=== PATIENT | male | born 1970 | race Caucasian/White ===

== ENCOUNTER 2017-01-15 18:58 | Emergency (ER) | payer SELFPAY ==
[~2017-01-15] VITALS: Ht 182.8 cm; Wt 81.6 kg
[~2017-01-15 18:58] MED LIST: BACTRIM DS 8001 TA1 PO; HYDROCODONE BIT1 T11 PO; KEFLEX500 MG PO; NAPROSYN500 MG PO; NKHM; ZOFRAN4 MG PO
[2017-01-15] MEDS ORDERED: CLINDAMYCIN HC300 MG PO (19:30)
[2017-01-15] MEDS ORDERED: NAPROSYN500 MG PO (19:51)
[2017-01-15] MEDS ORDERED: TENORMIN25 M1 PO (19:54)
== END 2017-01-15 22:13 | disposition home or self-care (01) ==
LOC: ED 18:58
DX: K02.9 Dental caries, unspecified (principal); K04.01 Reversible pulpitis; I15.9 Secondary hypertension, unspecified

== ENCOUNTER 2018-08-01 00:48 | Emergency (ER) | payer SELFPAY ==
[~2018-08-01] VITALS: Ht 180.3 cm; Wt 90.7 kg
[~2018-08-01 00:48] MED LIST changes: +CLINDAMYCIN HC300 MG PO; +TENORMIN25 M1 PO
[2018-08-01] MEDS ORDERED: Motrin,Rufen800 MG PO (01:19)
[2018-08-01] MEDS ORDERED: CLINDAMYCIN HC300 MG PO (01:19)
== END 2018-08-01 02:05 | disposition home or self-care (01) ==
LOC: ED 00:48
DX: K04.01 Reversible pulpitis (principal); K02.9 Dental caries, unspecified; I10 Essential (primary) hypertension; Z79.2 Long term (current) use of antibiotics; Z79.899 Other long term (current) drug therapy

== ENCOUNTER 2019-11-23 05:19 | Emergency (ER) | payer OTHER ==
[~2019-11-23] VITALS: Ht 180.3 cm; Wt 90.7 kg
[~2019-11-23 05:19] MED LIST changes: +Motrin,Rufen800 MG PO
[2019-11-23 06:58] LABS: BASO % 0.4 % (0.0-1.0); EOS # 0.1 10*3/uL (0.0-0.4); EOS % 1.4 % (1.0-4.0); HEMATOCRIT 37.6 % (42.0-52.0); LYMPH # 1.3 10*3/uL (1.3-4.4); LYMPH % 18.3 % (27.0-41.0); MEAN CELL VOLUME 90.4 fl (80.0-94.0); MEAN CORPUSCULAR HGB 30.3 pg (27.0-31.0); MEAN CORPUSCULAR HGB CONC 33.5 g/dl (33.0-37.0); MEAN PLATELET VOLUME 11.2 fl (9.6-12.3); MONO # 0.5 10*3/uL (0.1-1.0); MONO % 6.3 % (3.0-9.0); NEUT # 5.4 10*3/uL (2.3-7.9); NEUT % 73.2 % (47.0-73.0); PLATELET COUNT AUTOMATED 172 10*3/uL (130-400); RED BLOOD COUNT 4.16 10*6/uL (4.50-5.90); RED CELL DISTRI WIDTH 12.7 % (0-14.5); WHITE BLOOD COUNT 7.3 10*3/uL (4.8-10.8)
[2019-11-23 07:07] LABS: INTERNATIONAL NORM RATIO 0.9 (2.0-3.5)
[2019-11-23 07:13] LABS: ALBUMIN 3.7 gm/dl (3.1-4.5); ALKALINE PHOSPHATASE 106 U/L (45-117); BUN 9 mg/dl (7-24); CHLORIDE 112 mmol/L (98-107); POTASSIUM 3.9 mmol/L (3.5-5.1); SGOT/AST 13 IU/L (3-35); SGPT/ALT 24 U/L (12-78); SODIUM 141 mmol/L (136-145); TOTAL PROTEIN 6.4 gm/dL (6.4-8.2)
[2019-11-23] MEDS ORDERED: Percocet 325 MG1 TAB PO (08:02)
== END 2019-11-23 08:10 | disposition home or self-care (01) ==
LOC: ED 05:19
PROVIDERS: Emergency Medicine
DX: S01.81XA Laceration without foreign body of other part of head, initial encounter (principal); M54.2 Cervicalgia; M54.9 Dorsalgia, unspecified; R79.1 Abnormal coagulation profile; W18.09XA Striking against other object with subsequent fall, initial encounter; Y93.89 Activity, other specified; Y92.89 Other specified places as the place of occurrence of the external cause; Y99.0 Civilian activity done for income or pay

== ENCOUNTER 2019-11-26 14:48 | Emergency (ER) | payer OTHER ==
[~2019-11-26] VITALS: Ht 180.3 cm; Wt 90.7 kg
[~2019-11-26 14:48] MED LIST changes: +Percocet 325 MG1 TAB PO
[2019-11-26] MEDS ORDERED: PERCOCET 5-3251 EACH PO (16:52)
== END 2019-11-26 17:03 | disposition home or self-care (01) ==
LOC: ED 14:48
DX: S29.012A Strain of muscle and tendon of back wall of thorax, initial encounter (principal); W22.8XXA Striking against or struck by other objects, initial encounter; Y93.89 Activity, other specified; Y92.89 Other specified places as the place of occurrence of the external cause; Y99.8 Other external cause status

== ENCOUNTER 2019-12-01 08:58 | Emergency (ER) | payer OTHER ==
[~2019-12-01] VITALS: Ht 180.3 cm; Wt 90.7 kg
[~2019-12-01 08:58] MED LIST changes: +PERCOCET 5-3251 EACH PO
== END 2019-12-01 09:41 | disposition home or self-care (01) ==
LOC: ED 08:58
DX: Z48.02 Encounter for removal of sutures (principal); Z79.899 Other long term (current) drug therapy; Z79.2 Long term (current) use of antibiotics

== ENCOUNTER 2023-01-12 12:49 | Emergency (ER) | payer SELFPAY ==
[2023-01-12] MEDS ORDERED: PREDNISONE50 MG PO (13:06)
[2023-01-12] MEDS ORDERED: CYCLOBENZAPRINE10 MG PO (13:13)
== END 2023-01-12 13:29 | disposition home or self-care (01) ==
LOC: ED 12:49
DX: M54.42 Lumbago with sciatica, left side (principal); M25.562 Pain in left knee; I10 Essential (primary) hypertension

== ENCOUNTER 2023-01-17 08:20 | Emergency (ER) | payer SELFPAY ==
[~2023-01-17] VITALS: Ht 177.8 cm; Wt 77.1 kg
[~2023-01-17 08:20] MED LIST changes: +CYCLOBENZAPRINE10 MG PO; +PREDNISONE50 MG PO
== END 2023-01-17 09:40 | disposition home or self-care (01) ==
LOC: ED 08:20
DX: S70.01XA Contusion of right hip, initial encounter (principal); I10 Essential (primary) hypertension; X58.XXXA Exposure to other specified factors, initial encounter; Y93.89 Activity, other specified; Y92.89 Other specified places as the place of occurrence of the external cause; Y99.8 Other external cause status

== ENCOUNTER 2023-09-03 15:26 | Emergency (ER) | payer MEDICAID ==
[~2023-09-03] VITALS: Ht 180.3 cm; Wt 79.4 kg
[2023-09-03 15:41] VITALS: BP 156/104
[2023-09-03] MEDS ORDERED: AMLODIPINE BESY10 MG PO (15:43)
[2023-09-03 16:29] LABS: BASO % 0.2 % (0.0-1.0); EOS % 0.1 % (1.0-4.0); HEMATOCRIT 40.1 % (42.0-52.0); LYMPH # 1.2 10*3/uL (1.3-4.4); LYMPH % 7.7 % (27.0-41.0); MEAN CELL VOLUME 88.1 fl (80.0-94.0); MEAN CORPUSCULAR HGB 29.9 pg (27.0-31.0); MEAN CORPUSCULAR HGB CONC 33.9 g/dl (33.0-37.0); MEAN PLATELET VOLUME 10.3 fl (9.6-12.3); MONO % 6.3 % (3.0-9.0); NEUT # 13.2 10*3/uL (2.3-7.9); NEUT % 84.4 % (47.0-73.0); PLATELET COUNT AUTOMATED 256 10*3/uL (130-400); RED BLOOD COUNT 4.55 10*6/uL (4.50-5.90); WHITE BLOOD COUNT 15.6 10*3/uL (4.8-10.8)
[2023-09-03 16:51] LABS: ALKALINE PHOSPHATASE 136 U/L (46-116); BUN 19 mg/dl (9-23); CHLORIDE 104 mmol/L (98-107); LIPASE 39 U/L (12-53); POTASSIUM 3.5 mmol/L (3.4-5.1); SGPT/ALT 18 U/L (5-49)
[2023-09-03 16:52] LABS: ETHYL ALCOHOL < 3.0 mg/dl (<3)
[2023-09-03] MEDS ORDERED: Piperacillin Sodium/Tazobact 50 ML IV ONE (17:00)
[2023-09-03] MEDS ORDERED: Vancomycin Hydrochloride 250 ML IV ONE (17:00)
[2023-09-03] MEDS ORDERED: SODIUM CHLORIDE 0.9% 1,000 ML IV SCH (18:20)
== END 2023-09-03 19:39 | disposition left against medical advice (07) ==
LOC: ED 15:26 → EDHOLD 18:30 → ED 18:30
PROVIDERS: Internal Medicine
DX: L03.113 Cellulitis of right upper limb (principal); A41.9 Sepsis, unspecified organism; I10 Essential (primary) hypertension; F17.200 Nicotine dependence, unspecified, uncomplicated

== ENCOUNTER 2023-12-20 12:30 | Emergency (ER) | payer MEDICAID ==
[~2023-12-20] VITALS: Ht 180.3 cm; Wt 77.1 kg
[~2023-12-20 12:30] MED LIST changes: +AMLODIPINE BESY10 MG PO
[2023-12-20] MEDS ORDERED: Lidocaine Hydrochloride 2% 10 ML AMP SC ONE (12:50)
[2023-12-20] MEDS ORDERED: Acetaminophen/Oxycodone 5 MG/325 MG TABLET PO ONE (12:50)
[2023-12-20] MEDS ORDERED: CEPHALEXIN 500 MG CAP PO ONE (13:10)
[2023-12-20] MEDS ORDERED: Sulfamethoxazole/Trimethopri 1 TAB TAB PO ONE (13:10)
[2023-12-20] MEDS ORDERED: SEPTDS PO (13:13)
[2023-12-20] MEDS ORDERED: CEPHALEXIN500 M1 PO (13:13)
[2023-12-20] MEDS ORDERED: HYDROCODONE-AC1 EAC1 PO (13:13)
== END 2023-12-20 13:14 | disposition home or self-care (01) ==
LOC: ED 12:30
DX: L02.31 Cutaneous abscess of buttock (principal); I10 Essential (primary) hypertension